=== PATIENT | male | born 1950 | race Caucasian/White ===

== ENCOUNTER → 2018-06-29 | Outpatient (CLI) | payer MEDICARE ==
--- NOTE | 2018-06-29 16:14 | REP ---
Clinical: Cough . Comparison: None . Technique: PA and lateral. Findings: The mediastinum and cardiac silhouette are normal. The lung venegas demonstrate chronic changes without acute consolidation, effusion, or pneumothorax. The skeletal structures are intact and normal. Impression: 1. No acute cardiopulmonary process. Electronically Signed by Manjit Burns MD 06/29/2018 04:04 P
== END ==
LOC: M LRY 15:46
PROVIDERS: ATTEND Nurse Practitioner Family
DX: R05 Cough (principal)
CPT/HCPCS: 71046; 87804; 87880; G0463

== ENCOUNTER → 2018-06-29 | Outpatient (REF) | payer MEDICARE | LOC: M SFHCLERA 16:08 | PROVIDERS: ATTEND Nurse Practitioner Family | DX: R53.81 Other malaise (principal) ==

== ENCOUNTER → 2019-01-04 | Outpatient (CLI) | payer MEDICARE ==
--- NOTE | 2019-01-05 07:29 | REP ---
REASON: Cough and fever. COMPARISON: 06/29/2018 There is a new opacity in the left lower lobe. The lung venegas are hyperexpanded and otherwise unchanged. Chronic biapical pleuroparenchymal scarring is noted status quo. The heart is not enlarged. There is no change in the osseous structures. IMPRESSION: Left lower lobe pneumonia. Electronically Signed by Rohan Bruno DO 01/05/2019 08:58 A
== END ==
LOC: M LRY 15:22
PROVIDERS: ATTEND Nurse Practitioner Family
DX: J18.0 Bronchopneumonia, unspecified organism (principal); R50.9 Fever, unspecified
CPT/HCPCS: 71046; 87804; 87880; G0463

== ENCOUNTER → 2019-01-04 | Outpatient (REF) | payer MEDICARE | LOC: M SFHCLERA 15:20 | PROVIDERS: ATTEND Nurse Practitioner Family | DX: R50.9 Fever, unspecified (principal) ==

== ENCOUNTER → 2020-04-14 | Outpatient (CLI) | payer MEDICARE ==
--- NOTE | 2020-04-14 14:32 | REP ---
INDICATION: STAGING FOR PROSTATE CA. COMPARISON: Comparison chest x-ray is reviewed from January 04, 2019.. TECHNIQUE/RADIOTRACER AND DOSE: 22.0 mCi of Technetium-99m MDP was injected and standard whole-body bone scanning is acquired. FINDINGS: There is normal distribution of skeletal tracer with uptake in bilateral kidneys and in the urinary bladder. There is minimal increased uptake at the manubriosternal junction consistent with degenerative change. There is also a solitary focus of increased uptake in the right paravertebral area at T11-12. Comparison chest x-ray shows right paravertebral degenerative disc spurring at [id number] and T12-L1. This may be degenerative uptake based on its appearance on oblique planar images. There is no other abnormal uptake. No compelling evidence of skeletal metastatic disease. IMPRESSION: There is a focus of paraspinal uptake in the lower thoracic spine on the right. This is felt to be most likely degenerative disc or osteoarthritic costovertebral uptake. Comparison with thoracic spine radiographs suggested. Prior chest x-ray shows degenerative change in this region. Otherwise, no evidence of skeletal metastatic disease.. <Electronically signed by Wood Cabrales > 04/14/20 [id number]
== END ==
LOC: M RAD 10:08
PROVIDERS: ATTEND Physician Assistant
DX: C61 Malignant neoplasm of prostate (principal); M51.34 Other intervertebral disc degeneration, thoracic region
CPT/HCPCS: 78306; A9503

== ENCOUNTER → 2020-07-12 | Outpatient (CLI) | payer MEDICARE ==
[~2020-07-12] MED LIST: AMLO1TAB24 PO; BICA50TA9 PO; FLON1SPR NARES; HYDR5TAB PO
--- NOTE | 2020-07-13 07:50 | REP ---
INDICATION: DIANGOSING LUNG NODULE R91.8. History of prostate carcinoma. Recently diagnosed with lung nodules. Lingular and upper lobe nodules reported on chest CT April 12, 2020 from an outside institution. COMPARISON: No comparison chest CT available this juncture. Comparison bone scan April 14, 2020.. TECHNIQUE: Fifty-six minutes following the intravenous injection of a 15.88 mCi dose of F-18 FDG, three-dimensional PET scintigraphy is acquired from the skull base to the proximal thighs. Triplanar noncontrast CT scanning is acquired through the same anatomic range for attenuation correction, and image registration with scan parameters optimized to minimize radiation exposure to the patient. PET scintigraphy and CT datasets were fused and displayed on a workstation with multiplanar and projection display capability. FINDINGS: Head and neck soft tissues are unremarkable. There is no evidence of hypermetabolic skeletal disease. There is degenerative discogenic spurring in the lower thoracic spine. There is biapical pleuroparenchymal fibrosis. No abnormal hypermetabolic uptake is seen in the lung parenchyma. There is a nodule in the left upper lobe which is a cm in diameter and displace maximum standard uptake value of 1.11. A right middle lobe a nodule is appreciated less than a cm in diameter showing maximum standard uptake value of 0.83. In the abdomen and pelvis there is normal hepatic, splenic, gastrointestinal and genitourinary uptake. There is mildly hypermetabolic periaortic and bilateral iliac lymphadenopathy. Maximum standard uptake value ranges from 3.04 to 5.17 in these lymph nodes. The lymph nodes measure up to 1.5 cm in diameter. There are fairly small. It is not possible to get an accurate SUV value of the prostate. The prostate is moderately enlarged eccentrically to the left and contains calcifications. The left seminal vesicle is enlarged. IMPRESSION: There is mildly hypermetabolic retroperitoneal and bilateral iliac adenopathy. Eccentric enlargement of the prostate and left seminal vesicle is seen. There are 2 visible pulmonary nodules neither of which is hypermetabolic. No scintigraphic evidence of skeletal metastatic disease. <Electronically signed by Wood Cabrales > 07/13/20 [id number]
== END ==
LOC: M PLARAD 09:33
PROVIDERS: ATTEND Internal Medicine Hematology & Oncology
DX: R91.8 Other nonspecific abnormal finding of lung field (principal)
CPT/HCPCS: 78815; A9552